=== PATIENT | male | born 1980 | race African-American/Black ===

== ENCOUNTER 2017-11-28 19:49 | Emergency (ER) | payer SELFPAY ==
[2017-11-28] MEDS ORDERED: Morphine 2 MG/ML SYRINGE ONE (21:47)
[2017-11-28] MEDS ORDERED: Ondansetron HCl/PF 4 MG/2 ML Vial ONE (21:47)
[2017-11-28 22:07] LABS: #Basophils 0.1 thou/uL (0.0-0.2); #Eosinphils 0.1 thou/uL (0.0-0.7); #Lymphocytes 1.2 thou/uL (1.20-3.40); #Monocytes 0.5 thou/uL (0.11-0.59); #Neutrophils 12.3 thou/uL (1.40-6.50); %Basophils 0.4 % (0.0-1.0); %Eosinophils 0.5 % (0.0-10.0); %Lymphocytes 8.4 % (21.0-51.0); %Monocytes 3.7 % (0.0-10.0); Hemoglobin 14.3 g/dL (14.0-18.0); Mean Corpuscular HGB CONC 32.5 g/dL (32.0-36.0); Mean Corpuscular Hemoglobin 31.7 pg (27.0-31.0); Mean Corpuscular Volume 97.6 fl (80.0-94.0); Mean Platelet Volume 6.2 fL (7.4-10.4); Platelet Count 312 thou/uL (130-400); RBC Distribution Width 11.8 % (11.5-14.5); Red Blood Cell (RBC) Count 4.52 mill/uL (4.70-6.10); White Blood Cell (WBC) Count 14.1 thou/uL (4.8-10.8)
[2017-11-28 22:26] LABS: ALT (SGPT) 14 U/L (8-55); AST (SGOT) 16 U/L (5-34); Alkaline Phosphatase 81 U/L (40-150); Anion Gap 12 mmol/L (10-20); BUN (Urea Nitrogen) 7 mg/dL (8.9-20.6); Bilirubin, Total 0.5 mg/dL (0.2-1.2); Calc. Creatinine Clearance 0 mL/min (70-130); Calcium 8.8 mg/dL (7.8-10.44); Carbon Dioxide 23 mmol/L (22-29); Chloride 107 mmol/L (98-107); Estimated GFR-MDRD Greater than 90; Glucose 90 mg/dL (70-105); Potassium 3.9 mmol/L (3.5-5.1); Sodium 138 mmol/L (136-145)
[2017-11-28] MEDS ORDERED: Acetaminophen 500 MG TAB ONE (23:26)
--- NOTE | 2017-11-28 23:31 | CT ---
CT ABDOMEN AND PELVIS WITH CONTRAST: History: Lower abdominal pain. Comparison: CT pelvis, 2013. FINDINGS: Lung bases are clear. No pericardial effusion. The liver and gallbladder are unremarkable, as well as the spleen. Relative to the 2013 examination, the left inguinal wound size is decreased although there appears to be a sinus tract from the urinary bladder to the left inguinal wound. The wound has a small peripher al enhancing fluid collection component which was seen back in 2013. There is chronic thickening garrett g the left inguinal region. Overlying scar of the skin. No dilated loops of large or small bowel. Appendix is visualized and is normal. No hydronephrosis. Pa ncreas is unremarkable as well as the spleen and the liver. Spine is unremarkable. Skeleton is unremarkable. IMPRESSION: 1. From the 2013 examination the inflammatory response in the left inguinal region is decreased altho ugh there appears to be a possible fistula between the left supralateral urinary bladder and the left inguinal region. Recommend evaluating this area for possible drainage which may contain urine. The s upralateral urinary bladder wall is markedly thickened, likely from chronic inflammation. 2. Likely large volume scar and chronic inflammation in the left inguinal region at the area of the e xpected prior hernia repair. 3. Normal appendix. POS: [facility]
[2017-11-29 00:01] LABS: Bilirubin Negative (Negative); Blood, Urine Negative (Negative); Clarity CLEAR (Clear); Glucose, Urine (Dipstick) Negative (Negative); Leukocyte Negative (Negative); Nitrite Negative (Negative); Protein, Urine (Dipstick) Negative (Neg-Trace); Specific Gravity, Urine 1.033 (1.002-1.036); Urobilinogen 0.2 mg/dL (0.2-1.0)
[2017-11-29] MEDS ORDERED: Ketorolac Tromethamine 30 MG/ML VIAL ONE (01:02)
== END 2017-11-29 01:11 | disposition home or self-care (01) ==
LOC: ERS 19:49
DX: J06.9 Acute upper respiratory infection, unspecified (principal); R10.32 Left lower quadrant pain; L90.5 Scar conditions and fibrosis of skin; I10 Essential (primary) hypertension; F17.210 Nicotine dependence, cigarettes, uncomplicated
CPT/HCPCS: 74177; 80053; 81003; 83605; 85025; 87040; 87070; 87077; 87081; 87086; 87186; 87205; 87430; 96361; 96374; 96375; J1885; J2270; J2405

== ENCOUNTER 2017-12-26 23:39 | Emergency (ER) | payer SELFPAY ==
[2017-12-27] MEDS ORDERED: HYDROcodone/Acetaminophen 5/325 mg Tablet ONE (00:32)
[2017-12-27] MEDS ORDERED: Ketorolac Tromethamine 60 MG/2 ML VIAL ONE (00:32)
[2017-12-27] MEDS ORDERED: predniSONE 20 MG TAB ONE (00:32)
[2017-12-27] MEDS ORDERED: HYDROcodone/Acetaminophen 10/325 mg Tablet ONE (00:39)
== END 2017-12-27 00:50 | disposition home or self-care (01) ==
LOC: ERS 23:39
DX: M54.40 Lumbago with sciatica, unspecified side (principal); I10 Essential (primary) hypertension; F17.210 Nicotine dependence, cigarettes, uncomplicated; Z71.6 Tobacco abuse counseling
CPT/HCPCS: 96372; 99406; J1885; J7506

== ENCOUNTER 2018-04-06 19:38 | Emergency (ER) | payer SELFPAY ==
[2018-04-06] MEDS ORDERED: Ibuprofen 800 MG TAB ONE (21:54)
[2018-04-06] MEDS ORDERED: Diazepam 5 MG TAB ONE (21:55)
== END 2018-04-06 23:08 | disposition home or self-care (01) ==
LOC: ERS 19:38
DX: M54.5 Low back pain (principal); I10 Essential (primary) hypertension; F17.210 Nicotine dependence, cigarettes, uncomplicated; Z91.14 Patient's other noncompliance with medication regimen
CPT/HCPCS: 99283

== ENCOUNTER 2018-07-01 16:51 | Emergency (ER) | payer SELFPAY ==
[~2018-07-01 16:51] MED LIST: ISOVUE-370 76%-LOCM 1 ML ONE
[2018-07-01 17:37] LABS: #Basophils 0.1 thou/uL (0.0-0.2); #Eosinphils 0.1 thou/uL (0.0-0.7); #Lymphocytes 2.4 thou/uL (1.20-3.40); #Monocytes 0.5 thou/uL (0.11-0.59); #Neutrophils 10.1 thou/uL (1.40-6.50); %Basophils 0.4 % (0.0-1.0); %Lymphocytes 17.8 % (21.0-51.0); %Monocytes 3.8 % (0.0-10.0); %Neutrophils 76.9 % (42.0-75.0); Hemoglobin 13.2 g/dL (14.0-18.0); Mean Corpuscular HGB CONC 32.6 g/dL (32.0-36.0); Mean Corpuscular Hemoglobin 31.5 pg (27.0-31.0); Mean Corpuscular Volume 96.7 fL (78.0-98.0); Mean Platelet Volume 6.5 fL (7.4-10.4); Platelet Count 330 thou/uL (130-400); RBC Distribution Width 11.4 % (11.5-14.5); Red Blood Cell (RBC) Count 4.21 mill/uL (4.70-6.10); White Blood Cell (WBC) Count 13.2 thou/uL (4.8-10.8)
[2018-07-01 17:56] LABS: ALT (SGPT) 11 U/L (8-55); AST (SGOT) 13 U/L (5-34); Albumin 4.1 g/dL (3.5-5.0); Alkaline Phosphatase 77 U/L (40-150); Anion Gap 13 mmol/L (10-20); BUN (Urea Nitrogen) 6 mg/dL (8.9-20.6); Bilirubin, Total 0.3 mg/dL (0.2-1.2); Calc. Creatinine Clearance 0 mL/min (70-130); Carbon Dioxide 28 mmol/L (22-29); Chloride 101 mmol/L (98-107); Estimated GFR-MDRD Greater than 90; Globulin 3.2 g/dL (2.4-3.5); Glucose 114 mg/dL (70-105); Lipase 21 U/L (8-78); Potassium 3.6 mmol/L (3.5-5.1); Protein, Total 7.3 g/dL (6.0-8.3); Sodium 138 mmol/L (136-145)
[2018-07-01] MEDS ORDERED: Ondansetron HCl/PF 4 MG/2 ML Vial ONE ×2 (17:56)
[2018-07-01] MEDS ORDERED: Morphine 4 MG/ML VIAL ONE (17:56)
[2018-07-01 18:05] LABS: Bilirubin Negative (Negative); Blood, Urine Trace (Negative); Clarity CLEAR (Clear); Glucose, Urine (Dipstick) Negative (Negative); Leukocyte Negative (Negative); Nitrite Negative (Negative); Protein, Urine (Dipstick) Negative (Neg-Trace); Specific Gravity, Urine 1.016 (1.002-1.036); Urobilinogen 0.2 mg/dL (0.2-1.0)
[2018-07-01 18:07] LABS: Bacteria/HPF None Seen HPF (None Seen); Hyaline Casts/LPF 0-3 HYALINE CAST LPF (0-3 Hyaline); RBC/HPF 0-3 HPF (0-3); Squamous Epithelial None Seen HPF (0-3); WBC/HPF 0-3 HPF (0-3)
--- NOTE | 2018-07-01 19:23 | ULT ---
SCROTAL ULTRASOUND 07/01/18 COMPARISON: None. HISTORY: Inguinal pain. TECHNIQUE: Multiplanar mcdaniel scale sonographic imaging of the scrotal contents with doppler interrogation of the testicles including color flow and spectral analysis. FINDINGS: No intratesticular mass is identified on either side. The testicles demonstrate normal symmetric bloo d flow. Right testicle measures 2.9 x 4.9 x 2.3 cm. Right epididymal head is normal measuring 1.6 to 0.9 cm. Left testicle measures 3.4 x 4.5 x 2.1 cm. Left epididymal head measures 1.9 x 0.8 cm. There is mild hyperemia in the left inguinal canal. Left inguinal canal is better assessed on recent CT of the abdomen and pelvis. IMPRESSION: Grossly unremarkable appearance of the scrotal contents. POS: [facility]
--- NOTE | 2018-07-01 19:41 | CT ---
CT ABDOMEN AND PELVIS 07/01/18 COMPARISON: 11/28/17 HISTORY: Abdominal pain, prior hernia repair. TECHNIQUE: Serial axial CT imaging is obtained at 5 mm intervals from the lung bases through the pubic symphysis with IV contrast. Coronal reformatted imaging obtained. FINDINGS: Imaged lung bases are unremarkable. No free intraperitoneal air is noted. Liver, gallbladder, spleen, pancreas, adrenal glands, and kidneys are unremarkable. Limited evaluation of the bowel without oral contrast media demonstrates no evidence for inflammatory change or obstruction. The appendix appears normal. The vascular structures of the abdomen/pelvis appear patent. There is no lymphadenopathy in the retro peritoneum or the pelvis. There is abnormal increased soft tissue density demonstrating a linear configuration within the ingui nal canal on the left. This is seen from the axial level of the hip joint on the left and extends int o the more inferior and medial aspect of the left inguinal region, extending to the axial level of th e pubic symphysis. The location of this abnormal increased soft tissue density within the subcutaneou s fat is similar when compared to the 11/28/17 exam. However, there may be slight interval increase in skin thickening within the soft tissues just superior to and left lateral of the base of the penis. On axial image 79, within the superficial subcutaneous fat just to the left of midline anterior to th e pubic symphysis, there is the suggestion of a possible small fluid collection measuring in the 9-10 mm range with surrounding inflammatory change. This may represent phlegmonous change. Of note, the a bnormal linear density in the left inguinal region extends to abut the anterior and left lateral aspe ct of the urinary bladder, similar when compared to prior imaging. The urinary bladder in this region demonstrates nonspecific wall thickening as well. Review of the osseous structures demonstrates no worrisome lytic or blastic bone lesion. IMPRESSION: Abnormal soft tissue density within the subcutaneous fat of the left inguinal region extending inferi erica to abut the base of the penis. The abnormality appears more conspicuous inferiorly when compared to prior imaging, which may represent phlegmonous change on the basis of an infectious process. Clin ical correlation is essential. POS: [facility]
== END 2018-07-01 20:06 | disposition home or self-care (01) ==
LOC: ERS 16:51
DX: L02.214 Cutaneous abscess of groin (principal); I10 Essential (primary) hypertension; F17.210 Nicotine dependence, cigarettes, uncomplicated; Z71.6 Tobacco abuse counseling
CPT/HCPCS: 36415; 74177; 76870; 80053; 81003; 81015; 83605; 83690; 85025; 93976; 96361; 96374; 96375; 99406; J2270; J2405

== ENCOUNTER 2019-03-27 03:59 | Emergency (ER) | payer SELFPAY ==
[2019-03-27] MEDS ORDERED: Ondansetron PF 4 MG/2 ML Vial ONE (06:39)
[2019-03-27 07:01] LABS: Hemoglobin 14.5 g/dL (14.0-18.0); Mean Corpuscular HGB CONC 33.9 g/dL (32.0-36.0); Mean Corpuscular Hemoglobin 32.4 pg (27.0-31.0); Mean Corpuscular Volume 95.6 fL (78.0-98.0); Mean Platelet Volume 7.4 fL (7.4-10.4); Platelet Count 282 thou/uL (130-400); RBC Distribution Width 11.9 % (11.5-14.5); Red Blood Cell (RBC) Count 4.46 mill/uL (4.70-6.10); White Blood Cell (WBC) Count 12.9 thou/uL (4.8-10.8)
[2019-03-27 07:19] LABS: ALT (SGPT) 20 U/L (8-55); AST (SGOT) 19 U/L (5-34); Albumin 4.2 g/dL (3.5-5.0); Alkaline Phosphatase 87 U/L (40-150); Anion Gap 13 mmol/L (10-20); BUN (Urea Nitrogen) 9 mg/dL (8.9-20.6); Calc. Creatinine Clearance 0 mL/min (70-130); Calcium 9.2 mg/dL (7.8-10.44); Carbon Dioxide 23 mmol/L (22-29); Chloride 103 mmol/L (98-107); Estimated GFR-MDRD Greater than 90; Globulin 3.2 g/dL (2.4-3.5); Glucose 81 mg/dL (70-105); Lipase 21 U/L (8-78); Potassium 4.1 mmol/L (3.5-5.1); Protein, Total 7.4 g/dL (6.0-8.3); Sodium 135 mmol/L (136-145)
[2019-03-27 07:21] LABS: Band 9 % (5-11); Lymphocytes 9 % (21-51); MDiff Complete? YES; Neutrophil 81 % (42-75); RBC Morphology Normal
[2019-03-27] MEDS ORDERED: Pantoprazole 40 MG VIAL ONE (07:23)
== END 2019-03-27 07:40 | disposition home or self-care (01) ==
LOC: ERS 03:59
DX: K92.0 Hematemesis (principal); R10.9 Unspecified abdominal pain
CPT/HCPCS: 80053; 82274; 83690; 85025; 93005; 96361; 96374; 96375; C9113; J2405

== ENCOUNTER 2019-04-14 12:45 | Emergency (ER) | payer SELFPAY ==
[2019-04-14] MEDS ORDERED: Ketorolac Tromethamine 30 MG/ML VIAL ONE (13:22)
--- NOTE | 2019-04-14 13:28 | RAD ---
EXAM: Left rib series with chest x-ray HISTORY: Left chest and rib pain after trauma COMPARISON: None FINDINGS: Single view of the chest shows a normal sized cardiomediastinal silhouette. There is no andreea dence of consolidation, mass, or pleural effusion. Multiple views of the left ribs shows no evidence of displaced rib fracture. No underlying pleural th ickening or pneumothorax are seen. There is moderate scoliotic curvature of the thoracic spine. IMPRESSION: 1. No evidence of displaced rib fracture. 2. No evidence of acute cardiopulmonary disease. 3. Moderate scoliosis
== END 2019-04-14 13:48 | disposition home or self-care (01) ==
LOC: ERS 12:45
DX: S20.212A Contusion of left front wall of thorax, initial encounter (principal); F17.210 Nicotine dependence, cigarettes, uncomplicated; I10 Essential (primary) hypertension; W01.198A Fall on same level from slipping, tripping and stumbling with subsequent striking against other object, initial encounter
CPT/HCPCS: 96372; J1885

== ENCOUNTER 2019-07-17 06:08 | Emergency (ER) | payer SELFPAY ==
[2019-07-17] MEDS ORDERED: Ketorolac Tromethamine 30 MG/ML VIAL ONE (06:24)
[2019-07-17] MEDS ORDERED: Diazepam 5 MG TAB ONE (06:31)
== END 2019-07-17 06:55 | disposition home or self-care (01) ==
LOC: ERS 06:08
DX: M54.5 Low back pain (principal); I10 Essential (primary) hypertension; F17.210 Nicotine dependence, cigarettes, uncomplicated; Z71.6 Tobacco abuse counseling
CPT/HCPCS: 96372; 99406; J1885

== ENCOUNTER 2019-10-29 06:23 | Emergency (ER) | payer SELFPAY | END 2019-10-29 06:45 | disposition home or self-care (01) | LOC: ERS 06:23 | DX: L98.499 Non-pressure chronic ulcer of skin of other sites with unspecified severity (principal); I10 Essential (primary) hypertension; F17.210 Nicotine dependence, cigarettes, uncomplicated | CPT/HCPCS: 99283 ==

== ENCOUNTER 2019-12-27 07:27 | Emergency (ER) | payer SELFPAY ==
[2019-12-27] MEDS ORDERED: Ketorolac Tromethamine 30 MG/ML VIAL ONE (07:47)
== END 2019-12-27 08:06 | disposition home or self-care (01) ==
LOC: ERS 07:27
DX: M54.5 Low back pain (principal); I10 Essential (primary) hypertension; F17.210 Nicotine dependence, cigarettes, uncomplicated
CPT/HCPCS: 96372; 99283; J1885

== ENCOUNTER 2021-02-07 06:48 | Emergency (ER) | payer SELFPAY | END 2021-02-07 07:24 | disposition home or self-care (01) | LOC: ERS 06:48 | DX: S80.861A Insect bite (nonvenomous), right lower leg, initial encounter (principal); F17.210 Nicotine dependence, cigarettes, uncomplicated; W57.XXXA Bitten or stung by nonvenomous insect and other nonvenomous arthropods, initial encounter | CPT/HCPCS: 99281 ==

== ENCOUNTER 2021-09-16 14:10 | Emergency (ER) | payer SELFPAY ==
[2021-09-16] MEDS ORDERED: HYDROcodone/Acetaminophen 5/325 mg Tablet ONE (16:57)
== END 2021-09-16 17:07 | disposition home or self-care (01) ==
LOC: ERS 14:10
DX: M25.511 Pain in right shoulder (principal); I10 Essential (primary) hypertension; F17.210 Nicotine dependence, cigarettes, uncomplicated

== ENCOUNTER 2023-02-03 08:39 | Emergency (ER) | payer SELFPAY ==
[2023-02-03 09:11] LABS: #Basophils 0.1 thou/uL (0.0-0.2); #Eosinphils 0.2 thou/uL (0.0-0.7); #Monocytes 0.5 thou/uL (0.11-0.59); #Neutrophils 7.1 thou/uL (1.40-6.50); %Basophils 0.7 % (0.0-1.0); %Eosinophils 1.6 % (0.0-10.0); %Lymphocytes 20.5 % (21.0-51.0); %Monocytes 5.1 % (0.0-10.0); %Neutrophils 71.9 % (42.0-75.0); Hemoglobin 13.8 g/dL (14.0-18.0); Mean Corpuscular HGB CONC 32.2 g/dL (32.0-36.0); Mean Corpuscular Hemoglobin 31.6 pg (27.0-31.0); Mean Corpuscular Volume 98.2 fl (78.0-98.0); Mean Platelet Volume 8.9 fL (7.4-10.4); Platelet Count 317 10x3/uL (130-400); RBC Distribution Width 12.9 % (11.5-14.5); Red Blood Cell (RBC) Count 4.37 mill/uL (4.70-6.10); White Blood Cell (WBC) Count 9.9 10x3/uL (4.8-10.8)
[2023-02-03] MEDS ORDERED: Aspirin Chewable 81 MG TAB ONE (09:29)
[2023-02-03] MEDS ORDERED: Ondansetron PF 4 MG/2 ML Vial ONE (09:29)
[2023-02-03] MEDS ORDERED: Morphine 4 MG/ML VIAL ONE (09:29)
[2023-02-03 09:38] LABS: ALT (SGPT) 21 U/L (8-55); AST (SGOT) 17 U/L (5-34); Albumin 3.9 g/dL (3.5-5.0); Alkaline Phosphatase 84 U/L (40-110); Anion Gap 11 mmol/L (10-20); BUN (Urea Nitrogen) 6 mg/dL (8.9-20.6); Bilirubin, Total 0.3 mg/dL (0.2-1.2); Calc. Creatinine Clearance 0 mL/min (70-130); Calcium 8.7 mg/dL (7.8-10.44); Carbon Dioxide 26 mmol/L (22-29); Chloride 105 mmol/L (98-107); Estimated GFR 96; Globulin 2.9 g/dL (2.4-3.5); Glucose 111 mg/dL (70-105); Lipase 34 U/L (8-78); Magnesium 1.8 mg/dL (1.6-2.6); Potassium 3.3 mmol/L (3.5-5.1); Protein, Total 6.8 g/dL (6.0-8.3); Sodium 139 mmol/L (136-145)
[2023-02-03] MEDS ORDERED: Iopamidol 370 76% 100 ML VIAL ONE (10:15)
[2023-02-03 10:34] LABS: Bilirubin Negative (Negative); Blood, Urine Negative (Negative); Clarity Clear (Clear); Glucose, Urine (Dipstick) Normal (Negative); Ketone, Urine Negative (Negative); Leukocyte Negative Leu/uL (Negative); Nitrite Negative (Negative); Protein, Urine (Dipstick) Negative (Neg-Trace); Specific Gravity, Urine 1.008 (1.002-1.036); Urobilinogen Normal mg/dL (Less than 2); pH, Urine 6.5 (5.0-9.0)
== END 2023-02-03 11:56 | disposition home or self-care (01) ==
LOC: ERS 08:39
DX: R07.89 Other chest pain (principal); L03.314 Cellulitis of groin; L02.214 Cutaneous abscess of groin; M54.42 Lumbago with sciatica, left side; K40.90 Unilateral inguinal hernia, without obstruction or gangrene, not specified as recurrent; I10 Essential (primary) hypertension; F17.210 Nicotine dependence, cigarettes, uncomplicated
CPT/HCPCS: 36415; 71045; 74177; 80053; 81003; 83605; 83690; 83735; 84484; 85025; 93005; 96374; 96375; J2270; J2405

== ENCOUNTER 2023-05-29 17:07 | Emergency (ER) | payer BC, SELFPAY ==
[2023-05-29] MEDS ORDERED: HYDROcodone/Acetaminophen 10/325 mg Tablet ONE (20:08)
[2023-05-29] MEDS ORDERED: Ketorolac Tromethamine 30 MG/ML VIAL ONE (20:09)
== END 2023-05-29 20:36 | disposition home or self-care (01) ==
LOC: ERS 17:07
DX: S82.492A Other fracture of shaft of left fibula, initial encounter for closed fracture (principal); S92.352A Displaced fracture of fifth metatarsal bone, left foot, initial encounter for closed fracture; I10 Essential (primary) hypertension; F17.210 Nicotine dependence, cigarettes, uncomplicated; W18.42XA Slipping, tripping and stumbling without falling due to stepping into hole or opening, initial encounter
CPT/HCPCS: 96372; J1885

== ENCOUNTER 2024-06-04 12:35 | Emergency (ER) | payer OTHER ==
[2024-06-04 14:58] LABS: SARS-CoV-2 E Target Negative; SARS-CoV-2 N2 Target Negative; SARS-CoV-2 NAA Rapid Test Not Detected (NotDetected); SARS-CoV-2 RdRP gene Negative
[2024-06-04] MEDS ORDERED: Dexamethasone 10 MG/ML VIAL ONE (15:31)
== END 2024-06-04 16:05 | disposition home or self-care (01) ==
LOC: ERS 12:35
DX: R05.9 Cough, unspecified (principal); I10 Essential (primary) hypertension; F17.210 Nicotine dependence, cigarettes, uncomplicated; Z79.899 Other long term (current) drug therapy
CPT/HCPCS: 71045; 93005; J1100; U0002

== ENCOUNTER 2025-06-23 14:42 | Emergency (ER) | payer OTHER | END 2025-06-23 19:15 | disposition home or self-care (01) | LOC: ERS 14:42 | DX: J01.00 Acute maxillary sinusitis, unspecified (principal); I10 Essential (primary) hypertension; M54.50 Low back pain, unspecified; G89.29 Other chronic pain; F17.210 Nicotine dependence, cigarettes, uncomplicated | CPT/HCPCS: 71045; 87428 ==